=== PATIENT | male | born 2000 | race Caucasian/White ===

== ENCOUNTER 2024-03-15 07:00 | Emergency (ER) | payer SELFPAY ==
[2024-03-15 07:25] VITALS: BP 132/84; PULSE 71; TEMP 36.5; O2SAT 98; BMI 19.5
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
== END 2024-03-15 09:53 | disposition home or self-care (01) ==
PROVIDERS: Emergency Provider Emergency Medicine
DX: S02.2XXA Fracture of nasal bones, initial encounter for closed fracture (principal); V43.52XA Car driver injured in collision with other type car in traffic accident, initial encounter
CPT/HCPCS: 70450; 70486; 71045; 72125; 72170; 73090; 73110; 99284

== ENCOUNTER 2024-09-02 11:29 | Emergency (ER) | payer OTHER, SELFPAY ==
[2024-09-02 11:44] VITALS: BP 115/74; PULSE 101; TEMP 37.2; O2SAT 99; BMI 20.2
--- NOTE | 2024-09-02 11:48 | ECG_ITS ---
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
[2024-09-02 12:00] VITALS: O2SAT 98
[2024-09-02 12:26] LABS: Influenza Virus A Antigen Negative; Influenza Virus B Antigen Negative; Internal Control Within Normal Limits
[2024-09-02 12:27] LABS: Internal Control Within Normal Limits; SARS-CoV-2 Ag NEGATIVE (NEGATIVE)
[2024-09-02 12:52] LABS: Internal Control Within Normal Limits; Strep A Antigen Screen Negative
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
[2024-09-05 09:38] LABS: BOX Test Reference Lab FIRELANDS
== END 2024-09-02 14:27 | disposition home or self-care (01) ==
PROVIDERS: Emergency Provider Emergency Medicine; PCP Nurse Practitioner Family
DX: R55 Syncope and collapse (principal); R09.81 Nasal congestion; R51.9 Headache, unspecified; J02.9 Acute pharyngitis, unspecified
CPT/HCPCS: 36415; 87070; 87081; 87502; 87804; 87811; 87880; 93005; 99284